=== PATIENT | female | born 2005 | race Caucasian/White ===

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

== ENCOUNTER → 2025-03-18 | Outpatient (CLI) | payer OTHER ==
[2025-03-18 14:26] LABS: BASOPHILS ABSOLUTE AUTO 0.03 K/mm3 (0.00-0.23); BASOPHILS PERCENT AUTO 0 % (0-2); EOSINOPHILS ABSOLUTE AUTO 0.12 K/mm3 (0.00-0.68); EOSINOPHILS PERCENT AUTO 2 % (0-6); Hematocrit 45.0 % (33.0-51.0); Hemoglobin 15.0 g/dL (11.5-16.0); IMMATURE GRAN ABSOLUTE AUTO 0.02 K/mm3 (0.00-0.10); IMMATURE GRAN PERCENT AUTO 0 % (0-1); LYMPHOCYTES ABSOLUTE AUTO 2.22 K/mm3 (0.84-5.20); LYMPHOCYTES PERCENT AUTO 31 % (21-46); MONOCYTES ABSOLUTE AUTO 0.50 K/mm3 (0.16-1.47); MONOCYTES PERCENT AUTO 7 % (4-13); Mean Corpuscular HGB Conc 33.3 g/dL (31.5-36.5); Mean Corpuscular Volume 88 fL (80-100); NEUTROPHILS ABSOLUTE AUTO 4.34 K/mm3 (1.96-9.15); NEUTROPHILS PERCENT AUTO 60 % (41-73); NRBC ABSOLUTE 0.00 K/mm3 (0.00-0.02); NRBC Auto 0.0 /100 WBC (0.0-0.2); Platelet Count 311 K/mm3 (150-400); RDW Coefficient Variation 12.2 % (11.7-14.2); RDW Standard Deviation 39.8 fL (35.1-46.3)
[2025-03-18 15:50] LABS: Ferritin, Serum 28.0 ng/mL (8-252); Thyroid Stimulating Hormone 2.29 uIU/mL (0.360-4.800); Total Iron Binding Capacity 402.0 ug/dL (250-450)
[2025-03-18 16:10] LABS: Chlamydia Trachomatis Urine NOT DETECTED (NOT DETECT); Neisseria Gonorrhoea Urine NOT DETECTED (NOT DETECT)
[2025-03-21 15:49] LABS: HEPATITIS C AB CIA INTERP Negative (Negative); HEPATITIS C ANTIBODY CIA INDEX 0.02 IV
[2025-03-21 15:58] LABS: HIV 1,2 COMBO ANTIGEN/ANTIBODY Negative (Negative)
== END ==
LOC: LAB SHORT 12:39 → LAB 12:39
PROVIDERS: General Practice
DX: Z11.3 Encounter for screening for infections with a predominantly sexual mode of transmission (principal); N92.1 Excessive and frequent menstruation with irregular cycle
CPT/HCPCS: 82306; 82728; 83540; 83550; 84443; 85025; 86592; 86803; 87340; 87389; 87491; 87591